=== PATIENT | male | born 1990 | race African-American/Black ===

== ENCOUNTER 2017-01-10 12:38 | Emergency (ER) | payer OTHER ==
[~2017-01-10] VITALS: Ht 177.8 cm; Wt 108.9 kg
[2017-01-10] MEDS ORDERED: FLEXERIL PO (14:01)
[2017-01-10] MEDS ORDERED: MOBIC15 MG PO (14:01)
[2017-01-10 14:23] VITALS: BP 126/72
== END 2017-01-10 14:24 | disposition home or self-care (01) ==
LOC: ER 12:38
DX: M25.512 Pain in left shoulder (principal); M79.661 Pain in right lower leg; F10.99 Alcohol use, unspecified with unspecified alcohol-induced disorder; F17.210 Nicotine dependence, cigarettes, uncomplicated